=== PATIENT | female | born 1970 | race Caucasian/White ===

== ENCOUNTER → 2023-06-25 14:56 | Outpatient (REF) | payer BC, SELFPAY | LOC: HWWDC 14:56 | PROVIDERS: ATTENDING PHYSICIAN Physician Assistant Medical; REFERRING PHYSICIAN Obstetrics & Gynecology | DX: Z12.31 Encounter for screening mammogram for malignant neoplasm of breast (principal) | CPT/HCPCS: 77063; 77067 ==

== ENCOUNTER 2024-12-04 05:35 | Emergency (ER) | payer BC, SELFPAY ==
[2024-12-04 05:36] VITALS: BP 112/66
[2024-12-04 06:17] VITALS: BP 118/76
[2024-12-04 06:21] VITALS: BMI 27.1
--- NOTE | 2024-12-04 07:20 | ED.GENMED ---
History of Present Illness
General
Chief Complaint: Allergic Reaction
Source: patient
Time Seen by Provider: 12/04/24 06:14
History of Present Illness
History of Present Illness:
Note:
CHIEF COMPLAINT(S)
Hives and itching
HISTORY OF PRESENT ILLNESS
The patient is a 54-year-old female presenting with hives and itching, which began yesterday morning. Around 9:00 AM, she noticed a sensation similar to a spider bite which she felt on her skin. Initially, there were no visible helton, but by
approximately 2:30 PM, distinct itchy spots began appearing on her legs and other areas, sparing the neck and face. She took half a dose of diphenhydramine at around 4:00 PM due to some drowsiness caused by the medication. Later in the evening, she
consumed homemade [place] sandwiches containing a sauce with added oyster sauce, which differed from her usual recipe.
The patient noted no immediate reaction post-consumption but woke at 1:30 AM, finding herself scratching. By 3:00 AM, hives had developed notably on her neck and face. This prompted the decision to seek medical evaluation. Her partner made a sauce
with a different brand of oyster sauce, which had a more concentrated oyster content. Past dietary consumption of oyster-containing products has been without such reactions, though usage was typically in smaller, diluted quantities.
The patient has a history of high seasonal allergies in spring and fall, treated symptomatically with loratadine, but she finds many allergy medications lead to sedation. The ? perceives a possible connection between the hives and recent bee
stings or the oyster sauce and wonders if there has been a cross-reaction or heightened immune response.
ADDITIONAL HISTORY OBTAINED FROM SOURCES OTHER THAN THE PATIENT
According to the patients , two days ago, he prepared sandwiches with a newly purchased brand of oyster sauce, which was more concentrated. Previously, the patient tolerated diluted oyster sauces without issue. He supports an investigation
into potential allergic responses to new ingredients.
REVIEW OF SYSTEMS
- Skin: Itchy hives noted on trunk, extremities, neck, and face.
- Respiratory: No reported dyspnea or stridor.
- Gastrointestinal: No nausea or vomiting.
- Neurological: No drowsiness except related to medication use.
- Musculoskeletal: No joint swelling or pain reported.
PHYSICAL EXAM
General: Alert, no acute distress.
Skin: Presence of hives on trunk and extremities; no facial involvement noted.
Head: Normocephalic, atraumatic.
Neck: Supple, trachea midline.
Eyes, Ears, Nose, and Throat: Oral mucosa moist, no stridor.
Cardiovascular: Regular rhythm without murmur, normal peripheral perfusion.
Respiratory: Clear to auscultation, no wheezing.
Gastrointestinal: Abdomen nondistended.
Neurological: Alert and oriented to person, place, time, and situation, cranial nerves are intact, no focal neurological deficits observed.
Musculoskeletal: Normal range of motion, normal strength.
PROBLEM LIST
Acute Problems:
- Acute urticaria possibly induced by dietary factors.
- History of recent bee stings with intense local reactions.
PLAN
- Initiate a course of oral corticosteroids to reduce the acute inflammatory response.
- Continue using non-sedating antihistamines such as loratadine during the day; reserve diphenhydramine for nighttime use to manage severe itching.
- Monitor symptoms for any progression to respiratory involvement, considering the need for additional emergency intervention such as epinephrine.
- Consider referral for allergy testing if symptoms recur, focusing on oyster and shellfish allergens.
- Lyme disease serology is being sent, as per the patient�s exposure to potential tick habitats, despite low suspicion.
DIFFERENTIAL DIAGNOSIS
The Differential Diagnosis includes, in no particular order and is not limited to:
- Allergic reaction to shellfish (oyster) sauce
- Delayed hypersensitivity reaction to bee stings
- Idiopathic urticaria
- Food allergy from another undisclosed ingredient
- Contact dermatitis
- Drug reaction (if any new medications or supplements were introduced)
- Viral exanthem
- Stress-induced hives
- Environmental allergen exposure
- Non-allergic histamine release due to high histamine-containing foods
Disposition:
SUMMARY OF ENCOUNTER
The patient is a 54-year-old female who presented to the emergency department with hives and itching. The symptoms began the previous morning, with noticeable hives appearing on her legs and later on her neck and face. The patient suspects a
connection between the hives and either recent bee stings or the consumption of oyster sauce with a higher concentration of oyster content than she had previously consumed. She has a history of high seasonal allergies. In the emergency department,
she remained in no acute distress, and the reaction was determined to be dermatologic only with no respiratory compromise. A course of oral corticosteroids was initiated to manage the acute inflammatory response, along with instructions to continue
using non-sedating antihistamines.
PLAN
- Initiate a course of oral corticosteroids to manage acute inflammation.
- Continue the use of non-sedating antihistamines such as loratadine during the day, and consider diphenhydramine at night for severe itching.
- Monitor for any progression to respiratory symptoms.
- Possible allergy testing for shellfish allergens if symptoms recur.
- Lyme disease serology will be conducted despite low suspicion.
MEDICATION RECONCILIATION
- Prednisone (a course of corticosteroids) prescribed to manage inflammation.
- Loratadine for daytime use to manage allergies.
- Diphenhydramine advised for nighttime use to manage severe itching.
MEDICAL DECISION MAKING
-Complexity of Data Reviewed: Chronic conditions affecting care [Seasonal allergies] Differential Diagnosis: Allergic reaction to shellfish (oyster) sauce, Delayed hypersensitivity reaction to bee stings, Idiopathic urticaria, Food allergy from
another undisclosed ingredient, Contact dermatitis, Drug reaction, Viral exanthem, Stress-induced hives, Environmental allergen exposure, Non-allergic histamine release.
-Data:
Category 1:
Clinical information obtained from an independent historian, the patients , regarding the new brand of oyster sauce used in their meal which has a higher concentration of oyster, potentially causing the allergic reaction.
Category 2:
N/A
Category 3:
N/A
-Risk:
Prescription medication was prescribed: Prednisone.
Consideration of Admission/Observation: Escalation of care including admission/observation was considered given the complexity and risk of the patients presenting complaint, exam findings, and/or their underlying comorbidities. However, ultimately I
feel the patient is safe for outpatient management with close follow-up. Reasoning: Work-up reassuring, does not reveal any acute life/organ-threatening processes, patients symptoms well controlled upon reevaluation, reexamination is reassuring,
vitals are stable, patient agreeable with discharge, reliable for follow-up.
DIAGNOSIS
- Acute urticaria (ICD-10: L50.0)
Phy Exam
Physical Exam
Physical Exam:
.
Course
Orders/Labs/Results
Orders:
Orders
12/04/24 07:07
[facility]
12/04/24 07:08
Prednisone [Deltasone] 50 mg PO NOW STA
Vital Signs
Initial and Last Documented VS:
Initial Vital Signs
Temp Pulse Resp BP Pulse Ox
98.7 F 85 16 112/66 99
12/04/24 05:36 12/04/24 05:36 12/04/24 05:36 12/04/24 05:36 12/04/24 05:36
Last Documented Vital Signs
Temp Pulse Resp BP Pulse Ox
98.7 F 78 18 118/76 99
12/04/24 05:36 12/04/24 06:17 12/04/24 06:17 12/04/24 06:17 12/04/24 06:19
*Pulse Oximetry
SaO2: 99
Oxygen Mode of Delivery: Room air
Patient hypoxic: no
*Critical Care Note
Total Time (30-74mins, 75-104mins- exclusive of procedures): Not Applicable
ED Attending Note
-
Portions of this chart may have been created with voice recognition software.� Occasional wrong word or��sound alike� substitutions may have occurred due to the inherent limitations of voice recognition software.
Discharge Plan
Departure
Patient Disposition: Home (Routine Discharge)
Date of Disposition: 12/04/24
Time of Disposition: 07:21
Patient with high blood pressure during this ER visit?: No
Discharge Problem:
Acute urticaria
Instructions: Hives (DC), Allergic reaction - ED discharge instructions
Prescriptions:
New
prednisone 10 mg Tablet
See Rx Instructions .ROUTE .COMPLEX Qty: 30 0RF
Rx Instructions:
Take By Mouth:
40 mg daily x3 days, 30 mg daily x3 days,
20 mg daily x3 days, 10 mg daily x3 days.
Referrals:
Dragan Dillard PA-C [Family Provider, Family Practice]
Activity Restrictions/Additional Instructions:
Return immediately for shortness of breath, lip or tongue swelling, worsening symptoms or any other concerns.
Use Claritin daily as needed and Benadryl for breakthrough itching or rash. Please see your doctor in follow-up in the next 1 week and consider allergy testing if symptoms persist or recur.
Interventions
Interventions:
*Risk Screen - Suicide Last Done: 12/04/24 05:36
ED- Cardiac Assessment Last Done: 12/04/24 05:46
ED- Pulmonary Assessment Last Done: 12/04/24 06:19
ED-Skin Assessment Last Done: 12/04/24 06:19
Discharge Date and Time
Print Language: ZAMBIAN
[2024-12-04] MEDS: DELTASONE 50 MG PO (07:43)
[2024-12-06 13:31] LABS: Lyme Antibody Screen, EIA Negative (Negative)
== END 2024-12-04 07:45 | disposition home or self-care (01) ==
LOC: EMR 05:35
PROVIDERS: EMERGENCY PHYSICIAN Emergency Medicine; FAMILY PHYSICIAN Physician Assistant Medical
DX: L50.0 Allergic urticaria (principal); Z91.048 Other nonmedicinal substance allergy status
CPT/HCPCS: 99283; 86618